=== PATIENT | female | born 1975 | race African-American/Black ===

== ENCOUNTER 2025-05-23 14:34 | Outpatient (REF) | payer OTHER, SELFPAY ==
--- OUTSIDE RECORDS SUMMARY | 2025-05-21 09:30 | XMS_ITS | Encounter Summary ---
Author Organization [facility] Address [address] [place] [address] Care Team Providers Care Belt Operator Name Role Phone Brittani Fontenot MD Primary Care Provider [phone] Reason for Referral * Imaging (Routine) - Pending Review Specialty Diagnoses / Procedures Referred By Contac t Referred To Contact Radiology Diagnoses Abdominal pain, unspecified abdominal location Procedures CT Abdomen Pelvis wo Contrast Declan San NP [address] [place] [address] Phone: tel: fax: [address] [phone] Phone: tel: Referral ID Status Reason Start Date Expiration Date V isits Requested Visits Authorized [id number] Pending Review 05/21/2025 05/21/2026 1 1 Reason for Visit * Reason Comments Medication Visit Encounter Details Date Type Department Care Team ([facility] st Contact Info) Description 05/21/2025 9:30 AM EST Office Visit Internal Medicine - [address] [phone] Declan San NP [address] [place] [id number] Hyperlipidemia, unspecified hyperlipidemia type (Primary Dx); Abdominal pain, unspecified abdominal location Social History Tobacco Use Types Packs/Day Years Used Date Smoking Tobacco: Every Day Cigarettes Smokeless Tobacco: Never Tobacco Cessation:Ready to Q uit: Not Asked; Counseling Given: Not Answered Alcohol Use Standard Drinks/Week Comments Yes 0 (1 standard drink = 0.6 oz pur e alcohol) Comments No Sex and Gender Information Value Date Recorded Sex Assigned at Female 05/12/2024 3:01 PM EST Legal Sex Female 2:20 PM EST Gender Identity Female 05/12/2024 3:01 PM EST Sexual Orientation Straight 05/12/2024 3: 01 PM EST documented as of this encounter Last Filed Vital Signs Vital Sign Reading Time Taken Comments Blood Pressure 114/78 05/21/2025 9:38 AM EST Pulse 102 05/21/2025 9:38 AM EST Temperature - - Respiratory Rate - - Oxygen Saturation - - Inhaled Oxygen Concentration - - Weight 78.8 kg (173 lb 11.2 oz) 05/21/2025 9:38 AM EST Height - - Body Mass Index 27.21 04/11/2025 10:06 AM EDT documented in this encounter Ordered Prescriptions Prescription Sig Dispense Quantity Refills Last Filled Start Date End Date ezetimibe (ZETIA) 10 mg tabletIndications:Hy perlipidemia, unspecified hyperlipidemia type Take 1 tablet (10 mg total) by mouth 1 (one) time each day. 90 each 05/21/2025 documented in this encounter Progress Notes * Declan San NP - 05/21/2025 9:30 AM EST CHIEF COMPLAINT: Medication Visit had concerns including Medication Visit. IDENTIFIER: Lexi Mccormack is a 50 y.o. old female HPI: Lexi Mccormack is a 50 y.o. old female presents to the office for evaluation of Medication Visit had concerns including Medication Visit. Stopped lovastatin due to side effect of muscle spasm throughout her body which resolved after she stopped medication, same symptoms had been previously on atorvastatin Reports abdominal pain located on different spots on her abdomen started about a year ago, mostly located on the left lower part and right upper, coughing make it worse, has history of heartburn and takes omeprazole, she feels this is not regular heartburn, denies regurgitation nausea vomiting, denies any other GI symptoms. Denies any urinary or genital symptoms Has history of partial hysterectomy 2 years ago Reports panic attack and would like to have prescription for lorazepam ROS: See HPI PAST MEDICAL HISTORY: Patient Active Problem List Diagnosis Date Noted Mild persistent asthma 10/27/2021 Seasonal allergies 10/27/2021 Nephrolithiasis 11/27/2020 Essential hypertension 05/04/2017 Anxiety with depression 03/29/2017 PTSD (post-traumatic stress disorder) 02/09/2016 Gastroesophageal reflux disease without esophagitis 07/22/2015 Smoking 11/11/2013 Overweight (BMI 25.0-29.9) 01/24/2011 Radiculitis, cervical 02/03/2010 Acne 12/30/2009 ACTIVE MEDICATIONS: Medications Taking[1] ALLERGIES: @ALL@ PHYSICAL EXAM: Visit Vitals BP 114/78 Pulse 102 Wt 78.8 kg (173 lb 11.2 oz) BMI 27.21 kg/m?? OB Status Hysterectomy Smoking Status Every Day BSA 1.9 m?? APPEARANCE: Alert and in no acute distress HEART: RRR with normal S1 and S2, no murmurs, no gallops, no JVD appreciated LUNG: clear to auscultation EXTREMITIES: Extremities warm and well perfused without clubbing, cyanosis, or edema LABS: @LASTDATALABS@ IMPRESSION: 1. Hyperlipidemia, unspecified hyperlipidemia type 2. Abdominal pain, unspecified abdominal location PLAN: Hyperlipidemia. Intolerant to statin, try Zetia, check lipid profile, liver enzyme Hypertension. Blood pressure is within normal limit, continue current regimen, check BMP. Abdominal pain. History of partial hysterectomy due to fibroid, given duration of symptoms about a year, order abdominal and pelvis CAT scan. Anxiety and panic attack, reports continuous and daily anxiety, reviewed several options which she is not interested, she would like to have a prescription for lorazepam, advised patient to see a psychiatrist for appropriate management, informed her that starting controlled substance medication needs PCP approval and related documentation. Has already scheduled follow-up appointment Orders Placed This Encounter Procedures CT Abdomen Pelvis wo Contrast ADDITIONAL ORDERS: CT ABDOMEN PELVIS WO CONTRAST Today's documentation was made using voice recognition software.This note may contain grammatical errors secondary to this software. Declan San NP on 05/21/2025 at 10:06 AM EST [1] Outpatient Medications Marked as Taking for the 05/21/25 encounter (Office Visit) with Declan San NP Medication Sig Dispense Refill albuterol HFA (PROAIR HFA ; PROVENTIL HFA ; VENTOLIN HFA) 90 mcg/actuation inhaler Inhale 2 puffs by mouth every 6 (six) hours if needed for wheezing. 6.7 g 1 aspirin 81 mg chewable tablet Chew 1 tablet (81 mg total) 1 (one) time each day. budesonide (PULMICORT) 90 mcg/actuation inhaler Inhale 1 puff by mouth 2 (two) times a day. Rinse mouth with water after use to reduce aftertaste and incidence of candidiasis. Do not swallow. 3 each 1 cetirizine (ZyrTEC) 10 mg tablet Take 1 tablet (10 mg total) by mouth 1 (one) time each day. 90 each 1 EPINEPHrine (EpiPen 2-Casey) 0.3 mg/0.3 mL injection INJECT CONTENTS OF 1 PEN NEEDED FOR ALLERGIC REACTION 1 each 0 fluticasone propionate (FLONASE) 50 mcg/actuation nasal spray Administer 2 sprays into each nostril1 (one) time each day. Shake gently. Before first use, prime pump. After use, clean tip and replacecap. 16 g 2 hydroCHLOROthiazide (HYDRODIURIL) 25 mg tablet Take 1 tablet (25 mg total) by mouth 1 (one) time each day. 90 each 1 inhaler, assist devices (AEROCHAMBER PLUS FLOW-VU MISC) USE WITH THE FLOVENT INHALER DIRECTED Lactobacillus acidophilus (PROBIOTIC ACIDOPHILUS ORAL) Take by mouth 1 (one) time each day. losartan (COZAAR) 50 mg tablet Take 1 tablet (50 mg total) by mouth 1 (one) time each day. 90 tablet 1 NIFEdipine (ADALAT CC) 30 mg 24 hr tablet Take 1 tablet (30 mg total) by mouth 1 (one) time each day. 90 tablet 0 omeprazole (PriLOSEC) [address] capsule Take 1 capsule (40 mg total) by mouth 1 (one) time each day.90 capsule 1 [DISCONTINUED] lovastatin (MEVACOR) 20 mg tablet Take 1 tablet (20 mg total) by mouth at bedtime. 30 each 5 documented in this encounter Plan of Treatment Upcoming Encounters Date Type Department Care Team (Late st Contact Info) Description 07/25/2025 10:00 AM EST Office Visit Obstetrics and Gynecology - [address] [phone] Mariluz Acevedo CNM [address] [place] [phone] Scheduled Orders Name Type Priority Associated Diagnoses Orde r Schedule CT Abdomen Pelvis wo Contrast Imaging Routine Abdominal pain, unspecified abdominal location Expected: 05/21/2025, Expires: 05/21/2026 documented as of this encounter Visit Diagnoses Diagnosis Hyperlipidemia, unspecified hyperlipidemia type- Primary Abdominal pain, unspecified abdominal location documented in this encounter Discontinued Medications Medication Sig Discontinue Reason Start Date End Da te lovastatin (MEVACOR) 20 mg tablet Take 1 tablet (20 mg total) by mouth at bedtime. Side effects 02/18/2025 05/21/2025 documented as of this encounter Care Teams Belt Operator Relationship Specialty Start Date End Date Brittani Fontenot MD [address] [place] [address] PCP - General Internal Medicine 05/21/25 documented as of this encounter
--- OUTSIDE RECORDS SUMMARY | 2025-05-21 10:20 | XMS_ITS | Encounter Summary ---
Author Organization [facility] Address [address] [place] [address] Care Team Providers Care Hydro Plant Technician Name Role Phone Brittani Fontenot MD Primary Care Provider [phone] Encounter Details Date Type Department Care Team (Late st Contact Info) Description 05/21/2025 10:20 AM EST Lab Draw Station - [place] [address] [place] [address] Numbness and tingling; Menopausal hot flushes; Adult general medical exam; Essential hypertension Social History Tobacco Use Types Packs/Day Years Used Date Smoking Tobacco: Every Day Cigarettes Smokeless Tobacco: Never Alcohol Use Standard Drinks/Week Comments Yes 0 (1 standard drink = 0.6 oz pur e alcohol) Comments No Sex and Gender Information Value Date Recorded Sex Assigned at Female 05/12/2024 3:01 PM EST Legal Sex Female 2:20 PM EST Gender Identity Female 05/12/2024 3:01 PM EST Sexual Orientation Straight 05/12/2024 3: 01 PM EST documented as of this encounter Functional Status * Calculated C-SSRS Risk Score (Lifetime/Recent) Answer Date of Assessment Author No Risk Indicated 05/22/2025 8:32 AM Cori Massey RN * [place] Suicide Severity Rating Scale (Screener/Recent Self-Report) Question Answer Date of Assessment Author 1. Wish to be (Past 1 Month) No 025 8:32 AM Cori Massey RN 2. Non-Specific Active Suici leslie Thoughts (Past 1 Month) No 05/22/2025 8:32 AM EST Santos, Wander a, RN 6. Suicidal Behavior (Lifetime) No 8:32 AM EST Cori Santos RN documented as of this encounter Plan of Treatment Upcoming Encounters Date Type Department Care Team (Late st Contact Info) Description 07/25/2025 10:00 AM EST Office Visit Obstetrics and [facility]necology - [address] [place] [address] Mariluz Acevedo, [address] [phone] documented as of this encounter Procedures Procedure Name Priority Date/Time Associated Diagnosis Comments THYROID STIMULATING HORMONE WITH REFLEX TO FREE T4 AND FREE T3 Routine 05/21/2025 10:26 AM EST Numbness and tingling Menopausal hot flushes LIPID PANEL WITH REFLEX TO DIRECT LDL Routine 05/21/2025 10:26 AM EST Adult general medical exam COMPREHENSIVE METABOLIC PANEL Routine 05/21/2025 10:26 AM EST Adult general medical exam Essential hypertension documented in this encounter Results * Comprehensive metabolic panel (05/21/2025 10:26 AM EST) Sodium 138 133 - 145 mmol/L LAB CHEMISTRY METHOD 05/21/2025 1:23 PM [facility] Potassium 4.2 3.5 - 5.5 mmol/L LAB CHEMISTRY METHOD 05/21/2025 1:23 PM [facility] Chloride 104 96 - 110 mmol/L LAB CHEMISTRY METHOD 05/21/2025 1:23 PM [facility] CO2 26 21 - 32 mmol/L LAB CHEMISTRY METHOD 05/21/2025 1:23 PM [facility] Anion Gap 8 3 - 11 LAB CHEMISTRY METHOD 05/21/2025 1:23 PM [facility] Glucose 90 70 - 100 mg/dL LAB CHEMISTRY METHOD 05/21/2025 1:23 PM [facility] BUN 21 5 - 25 mg/dL LAB CHEMISTRY METHOD 05/21/2025 1:23 PM [facility] Creatinine 0.88 0.50 - 1.10 mg/dL LAB CHEMISTRY METHOD 05/21/2025 1:23 PM [facility] eGFR 79 >=60 mL/min/1. 73m2 LAB CHEMISTRY METHOD 05/21/2025 1:23 PM [facility] Comment:Calculation based on the Chronic Kidney Disease Epidemiology Collaboration (CKD-EPI) equation refit without adjustment for race. BUN/Creatinine Ratio 23.9 LAB CHEMISTRY METHOD 05/21/2025 1:23 PM [facility] Calcium 9.7 8.5 - 10.5 mg/dL LAB CHEMISTRY METHOD 05/21/2025 1:23 PM [facility] AST (SGOT) 25 10 - 42 unit/L LAB CHEMISTRY METHOD 05/21/2025 1:23 PM [facility] ALT (SGPT) 29 10 - 60 unit/L LAB CHEMISTRY METHOD 05/21/2025 1:23 PM [facility] Alkaline Phosphatase 56 42 - 121 unit/L LAB CHEMISTRY METHOD 05/21/2025 1:23 PM [facility] Total Protein 7.7 6.0 - 8.0 g/dL LAB CHEMISTRY METHOD 05/21/2025 1:23 PM [facility] Albumin 4.4 3.2 - 5.0 g/dL LAB CHEMISTRY METHOD 05/21/2025 1:23 PM [facility] Total Bilirubin 0.4 0.0 - 1.4 mg/dL LAB CHEMISTRY METHOD 05/21/2025 1:23 PM [facility] Blood Venous blood specimen / Unknown Venipuncture / Unknown 05/21/2025 10:26 AM EST 05/21/2025 10:26 AM EST Declan San NP LAB BLOOD ORDERABLES Final Res ult Performing Organization Address [facility]/ZIP Co de Phone Number [facility] [address] [place] [address], [place] [phone] * (ABNORMAL) Lipid panel with reflex to direct LDL (05/21/2025 10:26 AM EST) Cholesterol 283(H) 0 - 200 mg/dL LAB CHEMISTRY METHOD 05/21/2025 1:27 PM EST [facility] Triglycerides 127 0 - 150 mg/dL LAB CHEMISTRY METHOD 05/21/2025 1:27 PM EST [facility] HDL 99 >=40 mg/dL LAB CHEMISTRY METHOD 05/21/2025 1:27 PM [facility] LDL Calculated 159(H) 0 - 100 mg/dL LAB CHEMISTRY METHOD 05/21/2025 1:27 PM [facility] Comment:Estimated LDL Calcul ated using equation: Total cholesterol - HDL cholesterol - (Triglycerides/5) VLDL Cholesterol Timothy 25.4 mg/dL LAB CHEMISTRY METHOD 05/21/2025 1:27 PM EST [facility] Non HDL Chol. (LDL+VLDL) 184(H) <145 mg/dL LAB CHEMISTRY METHOD 05/21/2025 1:27 PM [facility] Chol/HDL Ratio 2.9 0.0 - 4.4 LAB CHEMISTRY METHOD 05/21/2025 1:27 PM [facility] Blood Venous blood specimen / Unknown Venipuncture / Unknown 05/21/2025 10:26 AM EST 05/21/2025 10:26 AM EST Declan San NP LAB BLOOD ORDERABLES Final Res ult [facility] [address] [place] [address], [place] [phone] * Thyroid stimulating hormone with reflex to free t4 and free t3 (05/21/2025 10:26 AM EST) TSH 0.99 0.40 - 4.00 mcIU/mL LAB CHEMISTRY METHOD 05/21/2025 2:10 PM EST [facility] Blood Venous blood specimen / Unknown Venipuncture / Unknown 05/21/2025 10:26 AM EST 05/21/2025 10:26 AM EST us Declan San [facility] LAB BLOOD ORDERABLES Final Res ult [facility] [address] [place] [address], documented in this encounter Visit Diagnoses Diagnosis Numbness and tingling Disturbance of skin sensation Menopausal hot flushes Symptomatic menopausal or female climacteric states Adult general medical exam Unspecified general medical examination Essential hypertension Unspecified essential hypertension documented in this encounter Care Teams Hydro Plant Technician Relationship Specialty Start Date End Date Brittani Fontenot MD [facility] [place] [address] PCP - General Internal Medicine 05/21/25 documented as of this encounter
--- OUTSIDE RECORDS SUMMARY | 2025-05-22 08:40 | XMS_ITS | Encounter Summary ---
Author Organization [facility] Address [address] [place] [address] Care Team Providers Care Healthcare Architect Name Role Phone Brittani Fontenot MD Primary Care Provider [phone] Reason for Referral * Consultation (Routine) - Pending Review Specialty Diagnoses / Procedures Referred By Whitney t Referred To Contact Urology Richard Fraser PA [address] [place] [address] Phone: tel: fax: [facility] [address] [place] [address] Phone: tel: fax: Referral ID Status Reason Start Date Expiration Date Visits Requested Visits Authorized [id number] Pending Review Specialty Services Required 05/22/2026 1 1 Reason for Visit * Reason Comments Abdominal Pain X1 month, saw pcp ye ster who ordered CT but waiting on approval Encounter Details Date Type Department Care Team (Late st Contact Info) Description 05/22/2025 8:40 AM EST - 05/22/2025 1:37 PM EST Emergency [facility] Emergency [address] [place] [id number] Kidney stones (Primary Dx); Back strain, initial encounter Discharge Disposition: Home or Self Care Social History Tobacco Use Types Packs/Day Years [...] Sign Reading Time Taken Comments Blood Pressure 125/88 05/22/2025 10:26 AM EST Pulse 82 05/22/2025 10:26 AM EST Temperature 36.7 C (98.1 F) 05/22/2025 10:26 AM EST Respiratory Rate 16 05/22/2025 10:26 AM EST Oxygen Saturation 98% 05/22/2025 10:26 AM EST Inhaled Oxygen Concentration - - Weight 77.1 kg (170 lb) 05/22/2025 8:36 AM EST Height 170.2 cm (5' 7 ) 05/22/2025 8:36 AM EST Body Mass Index 26.63 05/22/2025 8:36 AM EST documented in this encounter Functional Status * Are you deaf or do you have serious difficulty hearing? Answer Date of Assessment Author No 05/22/2025 8:46 AM Johnson RN * Are you blind or do you have serious difficulty seeing, even when wearing glasses? Answer Date of Assessment Author No 05/22/2025 8:46 AM Johnson RN * Do you have serious difficulty walking or climbing stairs? Answer Date of Assessment Author No 05/22/2025 8:46 AM Johnson RN * Do you have serious difficulty dressing or bathing? Answer Date of Assessment Author No 05/22/2025 8:46 AM Johnson RN * Because of a physical, mental, or emotional condition, do you have serious difficulty doing errandsalone such as visiting the doctor? Answer Date of Assessment Author No 05/22/2025 8:46 AM Johnson RN * Calculated C-SSRS Risk Score (Lifetime/Recent) Answer Date of Assessment Author No Risk Indicated 05/22/2025 8:32 AM EST Cori Santos RN * [place] Suicide Severity Rating Scale (Screener/Recent Self-Report) Question Answer Date of Assessment Author 1. Wish to be (Past 1 Month) No 025 8:32 AM Cori Massey RN 2. Non-Specific Active Suici leslie Thoughts (Past 1 Month) No 05/22/2025 8:32 AM Wander Massey RN 6. Suicidal Behavior (Lifetime) No 8:32 AM Cori Massey RN documented as of this encounter Mental Status * Because of a physical, mental, or emotional condition, do you have serious difficulty concentrating, remembering, or making decisions? (5 years old or older) Answer Entry Date Author No 05/22/2025 8:46 AM Johnson RN documented in this encounter Discharge Instructions * Discharge Instructions* PAULINE Harris - 05/22/2025 12:56 PM EST You were evaluated for abdominal pain and spasms. You do not have a urinary tract infection. Your symptoms are likely caused by small kidney stones and muscle spasms. You were given medications to help with pain and to relax the muscles. You will also follow up with specialists to help manage your condition. Diagnosis: Kidney stones, non-obstructing Back muscle strain Treatment: Take tamsulosin as prescribed to help pass kidney stones Take the muscle relaxer as directed to reduce spasms Use acetaminophen for pain (do not take ibuprofen if you are on blood thinners) Drink plenty of water to help flush your kidneys Rest and avoid activities that make the pain worse Return to ER if: You develop fever, chills, or vomiting Your pain becomes severe or constant You notice blood in your urine or stool You feel weak, dizzy, or confused Follow up with your primary care provider in 3-5 days or sooner to review your CT scan results. Youwill also be referred to a kidney specialist (urology/renal) to help manage your kidney stones and symptoms. documented in this encounter Medications at Time of Discharge aspirin 81 mg chewable tablet Chew 1 tablet (81 mg total) 1 (one) time each day. cetirizine (ZyrTEC) 10 mg tabletIndications: Mild intermittent asthma without complication Take 1 tablet (10 mg total) by mouth 1 (one) time each day. 90 each 1 03/24/2025 6 EPINEPHrine (EpiPen 2-Casey) 0.3 mg/0.3 mL injection INJECT CONTENTS OF 1 PEN NEEDED FOR ALLERGIC REACTION 1 each 06/26/2024 hydroCHLOROthiazid e (HYDRODIURIL) 25 mg tabletIndications: Essential (primary) hypertension Take 1 tablet (25 mg total) by mouth 1 (one) time each day. 90 each 1 03/24/2025 6 inhaler, assist devices (AEROCHAMBER PLUS FLOW-VU [facility]) USE WITH THE FLOVENT INHALER DIRECTED 01/14/2022 Lactobacillus acidophilus (PROBIOTIC ACIDOPHILUS ORAL) Take by mouth 1 (one) time each day. losartan (COZAAR) 50 mg tablet Take 1 tablet (50 mg total) by mouth 1 (one) time each day. 90 tablet 1 02/18/2025 NIFEdipine (ADALAT CC) 30 mg 24 hr tabletIndications: Essential (primary) hypertension Take 1 tablet (30 mg total) by mouth 1 (one) time each day. 90 tablet 03/04/2025 omeprazole (PriLOSEC) [address] capsule Take 1 capsule (40 mg total) by mouth 1 (one) time each day. 90 capsule 1 05/20/2025 acetaminophen (TYLENOL) 500 mg tablet Take 2 tablets (1,000 mg total) by mouth every 6 (six) hours if needed for mild pain for up to 10 days. 30 tablet 05/22/2025 5 methocarbamoL (ROBAXIN) 500 mg tablet Take 1 tablet (500 mg total) by mouth 3 (three) times a day for 7 days. 20 tablet 05/22/2025 5 oxyCODONE-acetamin ophen (PERCOCET) 10-325 mg per tablet Take 1 tablet by mouth every 6 (six) hours if needed for severe pain for up to 3 days. Max Daily Amount: 4 tablets 12 tablet 05/22/2025 5 tamsulosin (FLOMAX) 0.4 mg 24 hr capsule Take 1 capsule (0.4 mg total) by mouth 1 (one) time each day for 7 days. Capsules should be taken 30 minutes following the same meal each day. 7 capsule 05/22/2025 5 documented as of this encounter Ordered Prescriptions Prescription Sig Dispense Quantity Refills Last Filled Start Date End Date oxyCODONE-acetamin ophen (PERCOCET) 10-325 mg per tablet Take 1 tablet by mouth every 6 (six) hours if needed for severe pain for up to 3 days. Max Daily Amount: 4 tablets 12 tablet 05/22/2025 5 acetaminophen (TYLENOL) 500 mg tablet Take 2 tablets (1,000 mg total) by mouth every 6 (six) hours if needed for mild pain for up to 10 days. 30 tablet 05/22/2025 5 methocarbamoL (ROBAXIN) 500 mg tablet Take 1 tablet (500 mg total) by mouth 3 (three) times a day for 7 days. 20 tablet 05/22/2025 5 tamsulosin (FLOMAX) 0.4 mg 24 hr capsule Take 1 capsule (0.4 mg total) by mouth 1 (one) time each day for 7 days. Capsules should be taken 30 minutes following the same meal each day. 7 capsule 05/22/2025 5 documented in this encounter Discharge Disposition Disposition Code Departure Means Destination Comment s Home or Self Care documented in this encounter Progress Notes * Cori Santos RN - 05/22/2025 8:31 AM EST Pt c/o lower right abd pain x1 month. Saw pcp yesterday who ordered an outpatient ct but she is waiting on insurance approval. Also c/o weakness today documented in this encounter Plan of Treatment Upcoming Encounters Date Type Department Care Team (Late st Contact Info) Description 07/25/2025 10:00 AM EST Office Visit [facility] [address] [place] [address] [facility] [place] [address] Scheduled Referrals Name Type Priority Associated Diagnoses Order Schedule Ambulatory referral to Urology Outpatient Referral Routine 1 Occurrence s starting 05/22/2025 until 05/22/2026 documented as of this encounter Procedures Procedure Name Priority Date/Time Associated Diagnosis Comments URINALYSIS WITH REFLEX MICROSCOPIC AND CULTURE STAT 05/22/2025 12:00 PM EST [place] URINE CULTURE TUBE STAT 05/22/2025 12:00 PM EST URINALYSIS WITH REFLEX MICROSCOPIC AND CULTURE STAT 05/22/2025 12:[address] ABDOMEN PELVIS WO CONTRAST STAT 05/22/2025 11:12 AM EST CBC WITH AUTO DIFFERENTIAL STAT 05/22/2025 10:14 AM EST CBC AND DIFFERENTIAL STAT 05/22/2025 10:14 AM EST documented in this encounter Results * [place] urine culture tube (05/22/2025 12:00 PM EST) Pathologist [facility] Extra Tube Hold for add-ons. 05/22/2025 2:[address] [facility] Comment:Auto resulted. Urine Urine specimen obtained by clean catch procedure / Unknown Non-blood Collection / Unknown 05/22/2025 12:00 PM EST 05/22/2025 12:10 PM EST Richard CARPENTER LAB URINE ORDERABLES Final Result [facility] [address] [place] [address], [place] [phone] * Urinalysis with reflex microscopic and culture (05/22/2025 12:00 PM EST) Specific [place] Urine 1.009 1.003 - 1.030 LAB URINALYSIS - AUTOMATED METHOD 05/22/2025 12:[address] [facility] pH, Urine 6.0 5.0 - 8.0 pH LAB URINALYSIS - AUTOMATED METHOD 05/22/2025 12:[address] [facility] Leukocytes, Urine Negative Negative LAB URINALYSIS - AUTOMATED METHOD 05/22/2025 12:19 PM [facility] Nitrite, Urine Negative Negative LAB URINALYSIS - AUTOMATED METHOD 05/22/2025 12:19 PM [facility] Protein, Urine Negative <=Trace mg/dL LAB URINALYSIS - AUTOMATED METHOD 05/22/2025 12:19 PM [facility] Glucose, Urine Negative Negative mg/dL LAB URINALYSIS - AUTOMATED METHOD 05/22/2025 12:19 PM [facility] Ketones, Urine Negative Negative mg/dL LAB URINALYSIS - AUTOMATED METHOD 05/22/2025 12:19 PM [facility] Urobilinogen, Urine 0.2 0.2 - 1.0 mg/dL LAB URINALYSIS - AUTOMATED METHOD 05/22/2025 12:19 PM [facility] Bilirubin, Urine Negative Negative LAB URINALYSIS - AUTOMATED METHOD 05/22/2025 12:19 PM [facility] Blood, Urine Negative Negative LAB URINALYSIS - AUTOMATED METHOD 05/22/2025 12:19 PM [facility] Urine Urine specimen obtained by clean catch procedure / Unknown Non-blood Collection / Unknown 05/22/2025 12:00 PM EST 05/22/2025 12:10 PM EST Richard CARPENTER LAB URINE ORDERABLES Final Result [facility] [address] [place] [address], [place] [phone] * CT Abdomen Pelvis wo Contrast (05/22/2025 11:12 AM EST) Anatomical Region Laterality Modality Body Computed Tomogra phy 05/22/2025 11:1 9 AM EST Impressions 05/22/2025 11:38 AM EST No acute findings in the abdomen and pelvis. 2 punctate nonobstructing right renal calculi. -------- FINAL REPORT -------- Dictated By: Jose Coleman Dictated Date: 05/22/2025 11:19 ET Assigned Physician: Jose Coleman Reviewed and Electronically Signed By: Jose Coleman Signed Date: 05/22/2025 11:38 ET Workstation ID: [id number] Transcribed By: Self Edit Transcribed Date: 05/22/2025 11:32 ET Narrative 05/22/2025 11:38 AM EST PROCEDURE: CT of the abdomen and pelvis without intravenous contrast. HISTORY: Abdominal pain, acute, no prior medical history. COMPARISON: 07/13/2022. TECHNIQUE: Noncontrast CT of the abdomen and pelvis with coronal and sagittal reformats. Dose length product: 802 mGy-cm. FINDINGS: Lung bases: Normal. Cardiac: Normal. Liver: Limited evaluation without intravenous contrast. No visible abnormality. Biliary: Normal gallbladder and biliary tree. Pancreas: Limited evaluation without intravenous contrast. No visible abnormality. Spleen: Limited evaluation without intravenous contrast. No visible abnormality. Adrenal glands: Normal. Kidneys: Limited evaluation without intravenous contrast. 2 punctate nonobstructing right renal calculi. Normal appearance of the ureters. Retroperitoneum: No mass or adenopathy. Abdominal vasculature: Mild multifocal atherosclerotic calcification. Bowel/mesentery: No obstruction or adenopathy. No mass or ascites. Abdominal wall: Normal. Pelvic nodes: No adenopathy. Pelvic organs: Hysterectomy. Bones: Degenerative changes of the spine, hips, SI joints, and pubic symphysis. Procedure Note Jose Coleman MD - 05/22/2025 PROCEDURE: CT of the abdomen and pelvis without intravenous contrast. HISTORY: Abdominal pain, acute, no prior medical history. COMPARISON: 07/13/2022. TECHNIQUE: Noncontrast CT of the abdomen and pelvis with coronal andsagittal reformats. Dose length product: 802 mGy-cm. FINDINGS: Lung bases: Normal. Cardiac: Normal. Liver: Limited evaluation without intravenous contrast. No visibleabnormality. Biliary: Normal gallbladder and biliary tree. Pancreas: Limited evaluation without intravenous contrast. No visibleabnormality. Spleen: Limited evaluation without intravenous contrast. No visibleabnormality. Adrenal glands: Normal. Kidneys: Limited evaluation without intravenous contrast. 2 punctatenonobstructing right renal calculi. Normal appearance of the ureters. Retroperitoneum: No mass or adenopathy. Abdominal vasculature: Mild multifocal atherosclerotic calcification. Bowel/mesentery: No obstruction or adenopathy. No mass or ascites. Abdominal wall: Normal. Pelvic nodes: No adenopathy. Pelvic organs: Hysterectomy. Bones: Degenerative changes of the spine, hips, SI joints, and pubicsymphysis. IMPRESSION: No acute findings in the abdomen and pelvis. 2 punctate nonobstructing right renal calculi. -------- FINAL REPORT -------- Dictated By: Jose Coleman Dictated Date: 05/22/2025 11:19 ET Assigned Physician: Jose Coleman Reviewed and Electronically Signed By: Jose Coleman Signed Date: 05/22/2025 11:38 ET Workstation ID: [id number] Transcribed By: Self Edit Transcribed Date: 05/22/2025 11:32 ET Richard CARPENTER IM CT PROCEDURES Final Res ult * (ABNORMAL) CBC auto differential (05/22/2025 10:14 AM EST) WBC 6.1 4.8 - 10.8 K/mcL LAB HEMETOLOGY METHOD 05/22/2025 10:56 AM [facility] RBC 3.90 3.80 - 4.80 M/mcL LAB HEMETOLOGY METHOD 05/22/2025 10:56 AM [facility] Hemoglobin 11.6 11.5 - 16.0 g/dL LAB HEMETOLOGY METHOD 05/22/2025 10:56 AM [facility] Hematocrit 34.4(L) 35.0 - 47.0 % LAB HEMETOLOGY METHOD 05/22/2025 10:56 AM [facility] MCV 87.8 79.0 - 98.0 FL LAB HEMETOLOGY METHOD 05/22/2025 10:56 AM [facility] MCH 29.6 27.0 - 32.0 pcg LAB HEMETOLOGY METHOD 05/22/2025 10:56 AM [facility] MCHC 33.7 32.0 - 37.0 g/dL LAB HEMETOLOGY METHOD 05/22/2025 10:56 AM [facility] RDW 12.3 11.0 - 15.0 % LAB HEMETOLOGY METHOD 05/22/2025 10:56 AM [facility] Platelets 204 130 - 400 K/mcL LAB HEMETOLOGY METHOD 05/22/2025 10:56 AM [facility] MPV 11.2(H) 7.0 - 11.0 FL LAB HEMETOLOGY METHOD 05/22/2025 10:56 AM [facility] NRBC 0.0 <1.0 % LAB HEMETOLOGY METHOD 05/22/2025 10:56 AM [facility] NRBC Absolute 0.00 <0.10 K/mcL LAB HEMETOLOGY METHOD 05/22/2025 10:56 AM [facility] Neutrophils Relative 49.9 % LAB HEMETOLOGY METHOD 05/22/2025 10:56 AM [facility] Lymphocytes Relative 39.9 % LAB HEMETOLOGY METHOD 05/22/2025 10:56 AM [facility] Monocytes Relative 8.7 % LAB HEMETOLOGY METHOD 05/22/2025 10:56 AM [facility] Eosinophils Relative 0.7 % LAB HEMETOLOGY METHOD 05/22/2025 10:56 AM [facility] Basophils Relative 0.5 % LAB HEMETOLOGY METHOD 05/22/2025 10:56 AM [facility] Immature Granulocytes Relative 0.3 % LAB HEMETOLOGY METHOD 05/22/2025 10:56 AM [facility] Neutrophils Absolute 3.02 1.50 - 7.00 K/mcL LAB HEMETOLOGY METHOD 05/22/2025 10:[address] [facility] Lymphocytes Absolute 2.42 1.00 - 5.00 K/[facility] HEMETOLOGY METHOD 05/22/2025 10:[address] [facility] Monocytes Absolute 0.53 0.20 - 1.00 K/[facility] HEMETOLOGY METHOD 05/22/2025 10:[address] [facility] Eosinophils Absolute 0.04 0.00 - 0.50 K/[facility] HEMETOLOGY METHOD 05/22/2025 10:[address] [facility] Basophils Absolute 0.03 0.00 - 0.20 K/[facility] HEMETOLOGY METHOD 05/22/2025 10:56 AM [facility] Immature Granulocytes Absolute 0.02 0.00 - 0.03 K/[facility] HEMETOLOGY METHOD 05/22/2025 10:56 AM [facility] Blood Venous blood specimen / Unknown Venipuncture / Unknown 05/22/2025 10:14 AM EST 05/22/2025 10:52 AM EST us Casey Min MD LAB BLOOD ORDERABLES Final Result [facility] [address] [place] [address], documented in this encounter Visit Diagnoses Diagnosis Kidney stones- Primary Calculus of kidney Back strain, initial encounter documented in this encounter Care Teams Healthcare Architect Relationship Specialty Start Date End Date Brittani Fontenot MD [facility] [address] [place], [place] PCP - General Internal Medicine 05/21/25 documented as of this encounter
--- NOTE | 2025-05-23 | EMG_ITS ---
Chief complaint: She had an episode of neck pain, which has improved. But continues to have numbness on both hands. Reason for referral: Evaluate for Carpal Tunnel Syndrome Referred by: Brody CARPENTER Procedure done: Upper extremity NCS/EMG Precautions and/or limitations: None The limb temperature was monitored continuously and remained between 32-36 degrees C during the performance of the NCS. Ulnar motor NCS was performed with moderate elbow flexion between 70-90 degrees, with across-elbow distance of 10 cm. Nerve Conduction Studies Anti Sensory Summary Table ?Stim Site NR Onset (ms) Norm Onset (ms) Peak (ms) Norm Peak (ms) O-P Amp (?V) Norm O-P Amp Site1 Site2 Delta-0 (ms) Dist (cm) Mo (m/s) Norm Mo (m/s) Left Median Anti Sensory (2nd Digit) Wrist ? 4.7 5.5 <3.6 4.3 >10 Wrist 2nd Digit 4.7 14.0 30 Right Median Anti Sensory (2nd Digit) Wrist ? 4.4 5.6 <3.6 8.3 >10 Wrist 2nd Digit 4.4 14.0 32 Right Radial Anti Sensory (Thumb) Forearm ? 2.1 2.7 <3.1 17.4 Forearm Thumb 2.1 10.0 48 Left Ulnar Anti Sensory (5th Digit) Wrist ? 2.8 3.6 <3.7 17.5 >15.0 Wrist 5th Digit 2.8 14.0 50 Right Ulnar Anti Sensory (5th Digit) Wrist ? 3.2 4.1 <3.7 8.9 >15.0 Wrist 5th Digit 3.2 14.0 44 Motor Summary Table ?Stim Site NR Onset (ms) Norm Onset (ms) O-P Amp (mV) Norm O-P Amp iAmp (mV) Amp (1st) (%) Site1 Site2 Delta-0 (ms) Dist (cm) Mo (m/s) Norm Mo (m/s) Left Median Motor (Abd Poll Brev) Wrist ? 7.1 <3.9 7.4 >4.5 8.7 100.0 Elbow Wrist 4.5 20.0 44 >45 Elbow ? 11.6 7.0 8.3 94.6 Right Median Motor (Abd Poll Brev) Wrist ? 6.0 <3.9 10.3 >4.5 12.0 100.0 Elbow Wrist 4.2 20.0 48 >45 Elbow ? 10.2 10.7 12.8 103.9 Left Ulnar Motor (Abd Dig Minimi) Wrist ? 3.7 <3.0 7.7 >5 9.2 100.0 B Elbow Wrist 3.8 20.5 54 >45 B Elbow ? 7.5 6.8 8.1 88.3 A Elbow B Elbow 1.6 10.0 63 >45 A Elbow ? 9.1 6.8 8.1 88.3 Right Ulnar Motor (Abd Dig Minimi) Wrist ? 3.8 <3.0 9.1 >5 10.3 100.0 B Elbow Wrist 4.0 20.0 50 >45 B Elbow ? 7.8 7.7 8.8 84.6 A Elbow B Elbow 1.6 10.0 62 >45 A Elbow ? 9.4 7.2 8.4 79.1 Right Ulnar (FDI) Motor (FDI) Wrist ? 4.5 <3.0 9.8 >5 12.3 100.0 B Elbow Wrist 3.9 19.5 50 >45 B Elbow ? 8.4 5.4 6.6 55.1 A Elbow B Elbow 1.4 10.0 71 >45 A Elbow ? 9.8 6.1 7.3 62.2 EMG ?Side Muscle Nerve Root Ins Act Fibs Psw Amp Dur Poly Recrt Int Pat Comment Right 1stDorInt Ulnar C8-T1 Nml Nml Nml Nml Nml 0 Nml Complete Right FlexCarRad Median C6-7 Nml Nml Nml Nml Nml 0 Nml Complete Right Biceps Musculocut C5-6 Nml Nml Nml Nml Nml 0 Nml Complete Right Triceps Radial C6-7-8 Nml Nml Nml Nml Nml 0 Nml Complete Right Deltoid Axillary C5-6 Nml Nml Nml Nml Nml 0 Nml Complete Left 1stDorInt Ulnar C8-T1 Nml Nml Nml Nml Nml 0 Nml Complete Left FlexCarRad Median C6-7 Nml Nml Nml Nml Nml 0 Nml Complete Left Biceps Musculocut C5-6 Nml Nml Nml Nml Nml 0 Nml Complete Left Triceps Radial C6-7-8 Nml Nml Nml Nml Nml 0 Nml Complete Left Deltoid Axillary C5-6 Nml Nml Nml Nml Nml 0 Nml Complete Paraspinal EMG ?Side Muscle Nerve Root Ins Act Fibs Psw Comment Right Cervical Upper Rami Nml Nml Nml Right Cervical Mid Rami Nml Nml Nml Right Cervical Lower Rami Incr 1+ 1+ Left Cervical Upper Rami Nml Nml Nml Left Cervical Mid Rami Nml Nml Nml Left Cervical Lower Rami Nml Nml Nml FINDINGS: Right median motor nerves showed prolonged distal latency, normal amplitude and normal conduction velocity. Left median motor nerve showed prolonged distal latencies, normal amplitude and slow conduction velocity. Bilateral median sensory nerves showed prolonged peak latencies and small amplitude. Right ulnar motor nerve, recording either on ADM or FDI, showed prolonged distal latency, normal amplitude and normal conduction velocity. No conduction block across elbow. Evidence of possible right Elliott Brionna anastomosis was seen, which is a normal anatomic variant. Left ulnar motor nerve showed prolonged distal latency, normal amplitude and normal conduction velocity. No conduction block across elbow. Right ulnar sensory nerve showed small amplitude and prolonged peak latency. Left ulnar sensory nerve within normal. Right radial sensory nerve within normal. Concentric needle EMG was performed in selected muscles of the bilateral upper extremities and cervical paraspinals. Study revealed signs of electric abnormalities as shown in the table above. Right lower cervical paraspinals showed increased insertional activity, PSWs and fibrillations. IMPRESSION: 1. This is an abnormal study. 2. There is electrodiagnostic evidence for bilateral moderate-severe median neuropathy at the wrist, consistent with Carpal Tunnel Syndrome.. 3. There are electrodiagnostic findings suggestive for bilateral ulnar neuropathy, chronic, more evident on right side. 4. I can not completely rule out a lower cervical radiculopathy. CLINICAL COMMENT: Further clinical correlation recommended. Thank you for your kind referral. Nimisha Rock MD, KATIE Board Certified, [place] Board [employer] Physical [employer] and Rehabilitation (ABPMR) Board Certified, [place] Board of Electrodiagnostic Medicine (ABEM) CODIN [phone] x 2 extremities MTDD
--- OUTSIDE RECORDS SUMMARY | 2025-05-23 21:41 | XMS_ITS | Clinical Summary ---
Author Organization [address] [facility] Address [address] [place] [phone] Phone Care Team Providers Care Electrical Instrumentation Technician Name Role Phone Brittani Fontenot MD Primary Care Provider [phone] Allergies Active Allergy Reactions Criticality Noted Date Comments Atorvastatin Muscular Issues 02/18/2025 Crab 01/01/2025 Hydrocodone-Acetaminophen 01/01/2010 Iodinated Contrast Media 02/09/2016 Lobster 01/01/2025 Minocycline Hcl High 10/04/2006 Other Reaction(s): Rash/Dermatitis caused oral thrush Morphine Anaphylaxis High 07/13/2022 Other Headache 09/23/2021 Covid-19 (Subunit) Vaccine- Other Reaction(s): OTHER Nausea, fever , seizure (phizer) Medications Lactobacillus acidophilus (PROBIOTIC ACIDOPHILUS ORAL) Take by mouth 1 (one) time each day. Active inhaler, assist devices (AEROCHAMBER PLUS FLOW-VU [facility]) USE WITH THE FLOVENT INHALER DIRECTED 022 Active albuterol HFA (PROAIR HFA ; PROVENTIL HFA ; VENTOLIN HFA) 90 mcg/actuation inhalerIndication s:Mild intermittent asthma without complication Inhale 2 puffs by mouth every 6 (six) hours if needed for wheezing. 6.7 g 1 024 Active EPINEPHrine (EpiPen 2-Casey) 0.3 mg/0.3 mL injection INJECT CONTENTS OF 1 PEN NEEDED FOR ALLERGIC REACTION 1 each 024 Active fluticasone propionate (FLONASE) 50 mcg/actuation nasal sprayIndications: Nasal congestion Administer 2 sprays into each nostril 1 (one) time each day. Shake gently. Before first use, prime pump. After use, clean tip and replace cap. 16 g 2 Active budesonide (PULMICORT) 90 mcg/actuation inhaler Inhale 1 puff by mouth 2 (two) times a day. Rinse mouth with water after use to reduce aftertaste and incidence of candidiasis. Do not swallow. 3 each Active aspirin 81 mg chewable tablet Chew 1 tablet (81 mg total) 1 (one) time each day. Active losartan (COZAAR) 50 mg tablet Take 1 tablet (50 mg total) by mouth 1 (one) time each day. 90 tablet 1 Active NIFEdipine (ADALAT CC) 30 mg 24 hr tabletIndications :Essential (primary) hypertension Take 1 tablet (30 mg total) by mouth 1 (one) time each day. 90 tablet 025 Active hydroCHLOROthiazi de (HYDRODIURIL) 25 mg tabletIndications :Essential (primary) hypertension Take 1 tablet (25 mg total) by mouth 1 (one) time each day. 90 each 025 2025 Active cetirizine (ZyrTEC) 10 mg tabletIndications :Mild intermittent asthma without complication Take 1 tablet (10 mg total) by mouth 1 (one) time each day. 90 each 025 2025 Active omeprazole (PriLOSEC) [address] capsule Take 1 capsule (40 mg total) by mouth 1 (one) time each day. 90 capsule 1 Active tamsulosin (FLOMAX) 0.4 mg 24 hr capsule Take 1 capsule (0.4 mg total) by mouth 1 (one) time each day for 7 days. Capsules should be taken 30 minutes following the same meal each day. 7 capsule 025 2024 Active methocarbamoL (ROBAXIN) 500 mg tablet Take 1 tablet (500 mg total) by mouth 3 (three) times a day for 7 days. 20 tablet 2024 Active acetaminophen (TYLENOL) 500 mg tablet Take 2 tablets (1,000 mg total) by mouth every 6 (six) hours if needed for mild pain for up to 10 days. 30 tablet 025 2024 Active oxyCODONE-acetami nophen (PERCOCET) 10-325 mg per tablet Take 1 tablet by mouth every 6 (six) hours if needed for severe pain for up to 3 days. Max Daily Amount: 4 tablets 12 tablet 2024 Active lovastatin (MEVACOR) 20 mg tablet Take 1 tablet (20 mg total) by mouth at bedtime. 30 each 5 025 2024 Discontinued(S katrin effects) omeprazole (PriLOSEC) [address] capsule Take 1 capsule (40 mg total) by mouth 1 (one) time each day. 90 capsule 025 2024 Discontinued(R eorder) ezetimibe (ZETIA) 10 mg tabletIndications :Hyperlipidemia, unspecified hyperlipidemia type Take 1 tablet (10 mg total) by mouth 1 (one) time each day. 90 each 025 2024 Discontinued hydrOXYzine HCL (ATARAX) 25 mg tabletIndications :Anxiety Take 1 tablet (25 mg total) by mouth at bedtime as needed for anxiety. 90 each 025 2024 Discontinued Active Problems Problem Noted Date Diagnosed Date Mild persistent asthma 10/27/2021 Seasonal allergies 10/27/2021 Nephrolithiasis 11/27/2020 Overview (05/23/2024): PVU, stent/removal, lithotripsy Essential hypertension 05/04/2017 Anxiety with depression 03/29/2017 Overview (05/23/2024): Therapist Meme [phone] PTSD (post-traumatic stress disorder) 02/09/2016 Gastroesophageal reflux disease without esophagi tis 07/22/2015 Smoking 11/11/2013 Overweight (BMI 25.0-29.9) 01/24/2011 Radiculitis, cervical 02/03/2010 Acne 12/30/2009 Encounters Date Type Department Care Team Description 05/22/2025 8:40 AM EST - 05/22/2025 1:37 PM EST Emergency [facility] Emergency [address] [place] [address] Kidney stones (Primary Dx); Back strain, initial encounter Discharge Disposition: Home or Self Care 05/21/2025 10:20 AM EST Lab Draw Station [address] Numbness and tingling; Menopausal hot flushes; Adult general medical exam; Essential hypertension 05/21/2025 9:30 AM EST Office Visit Internal Medicine - [address] [phone] Declan San NP Hyperlipidemia, unspecified hyperlipidemia type (Primary Dx); Abdominal pain, unspecified abdominal location 05/21/2025 Results Follow-Up Internal Medicine - [address] [phone] Declan San NP 05/21/2025 Telephone Internal Medicine - [address] [phone] Brittani Fontenot MD 04/14/2025 Results Follow-Up Internal Medicine - [address] [phone] nSow Reis [place] 04/11/2025 9:53 AM EDT - 04/11/2025 11:59 PM EDT [facility] at [address] [phone] Encounter for screening mammogram for malignant neoplasm of breast Discharge Disposition: Home or Self Care 04/04/2025 12:00 PM EDT Office Visit Internal Medicine - [address] [phone] Declan San NP Adult general medical exam (Primary Dx); Overweight (BMI 25.0-29.9); Numbness and tingling; Essential hypertension; Menopausal hot flushes; Encounter for screening mammogram for malignant neoplasm of breast from Last 3 Months Immunizations Immunization Administration Dates Next Due Pfizer SARS-CoV-2 COVID-19, mRNA, LNP-S, preservative free 08/19/2020 Tdap Tetanus diptheria acell ular pertussis (Boostrix; Adacel) 7yo and older 12/30/2009 Surgical History Surgery Date Site/Laterality Comments KNEE ARTHROSCOPY PROCEDURE: [place] ARTHROSCOPY AID [place] SPINE&/FX KNEE W/O FIXJ OTHER SURGICAL HISTORY 11/20/2020 Right PROCEDURE: [place] URETERAL ENDOSCOPY VIA URETEROSTOMY; COMMENT: stone extraction/ stent exchange OTHER SURGICAL HISTORY 08/15/2022 PROCEDURE: LAPAROSCOPY, SURGICAL/HYSTERECTOMY; COMMENT: with bilateral salpingectomy HYSTERECTOMY Medical History Medical History Date Comments Historical Medical DX DX:Other a bnormal Pap smear and cervical HPV (human papapillomavirus); COMMENT: ? gonzalo 2-laser 1995 Esophageal reflux DX:Esophageal reflux Essential hypertension DX:Essent ial hypertension Nephrolithiasis 11/27/2020 DX:Nephrolithias is; COMMENT: PVU Cervical cancer ([facility] V24 , [facility] V28) 1991 DX:Cervical cancer ([facility]) Covid-19 07/14/2022 DX:COVID-19; COM MENT: 07/13/22 Family History Medical History Relation Name Comments Breast cancer Aunt MAT X2 Ovarian cancer Aunt maternal 50 No Known Problems Brother No Known Problems Father No Known Problems Maternal Grandfather Colon cancer Maternal Grandmother ? colon or ovarian No Known Problems Mother No Known Problems Other No Known Problems Paternal Grandfather No Known Problems Paternal Grandmother Other: ? cervical abnormality Sister Colon cancer Uncle paternal uncle Blindness Neg Hx Cataracts Neg Hx Glaucoma Neg Hx Macular degeneration Neg Hx Strabismus Neg Hx Relation Name Status Comments Aunt Brother Father Maternal Grandfather Maternal Grandmother Mother Other Paternal Grandfather Paternal Grandmother Sister Uncle Social History Tobacco Use Types Packs/Day Years [...] Orientation Straight 05/12/2024 3: 01 PM EST Obstetrics History Para Term AB IAB SAB Ectopic Multiple Livin g Live Births 1 Last Filed Vital Signs Vital Sign Reading [...] Mass Index 26.63 05/22/2025 8:36 AM EST Plan of Treatment Upcoming Encounters Date Type Department Care Team (Late st Contact Info) Description 07/25/2025 10:00 AM EST Office Visit [facility]st[facility]s [facility] [address] [place] [address] Mariluz Acevedo, [address] [phone] Health Maintenance Due Date Last Done Comments Colorectal Cancer Screening: Colonoscopy 1973 Hepatitis B Vaccines (1 of 3 - 19+ 3-dose series) 02/02/1992 Pneumococcal Vaccine: 50+ Years (1 of 2 - PCV) 02/02/1992 Zoster Vaccines (1 of 2) 02/02/1992 Cervical Cancer Screening: Pap Smear 10/30/2016 10/30/2013, 10/30/2013 DTaP,Tdap,and Td Vaccines (2 - Td or Tdap) 12/31/2019 12/30/2009 COVID-19 Vaccine (2 - Pfizer risk series) 09/09/2020 08/19/2020 Social Influencers of Health Screening 06/18/2022 RSV Immunization Adult Patients (1 - Risk 50-74 years 1-dose series) 2023 Depression Screening 07/10/2024 Influenza Vaccine (#1) 2025 Hypertension/CHF/CAD Annual BMP Blood Test 05/21/2026 05/21/2025, 01/01/2025, 02/23/2024, Additional history exists Breast Cancer Screening 04/11/2027 04/11/20, 02/05/2018, 01/30/2017 Cholesterol Screening (Lipid Panel) 05/21/2030 05/21/2025, 01/01/2025, 03/30/2023 HIV Screening Completed 10/30/2013 Hepatitis C Screening Completed 10/30/2013 HIB Vaccines Aged Out No longer eligi ble based on patient's age to complete this topic HPV Vaccines Aged Out No longer eligi ble based on patient's age to complete this topic Hepatitis A Vaccines Aged Out No long er eligible based on patient's age to complete this topic IPV Vaccines Aged Out No longer eligi ble based on patient's age to complete this topic MMR Vaccines Aged Out No longer eligi ble based on patient's age to complete this topic Meningococcal ACWY Vaccine Aged Out N o longer eligible based on patient's age to complete this topic Meningococcal B Vaccine Aged Out No l onger eligible based on patient's age to complete this topic RSV Immunization Patients Under 20 months Aged Out No longer eligible based on patient's age to complete this topic Varicella Vaccines Aged Out No longer eligible based on patient's age to complete this topic Procedures Procedure Name Priority Date/Time Associated Diagnosis Comments GALICIA URINE CULTURE TUBE STAT 05/22/2025 12:00 PM EST URINALYSIS WITH REFLEX MICROSCOPIC AND CULTURE STAT 05/22/2025 12:00 PM EST URINALYSIS WITH REFLEX MICROSCOPIC AND CULTURE STAT 05/22/2025 12:[address] ABDOMEN PELVIS WO CONTRAST STAT 05/22/2025 11:12 AM EST CBC WITH AUTO DIFFERENTIAL STAT 05/22/2025 10:14 AM EST CBC AND DIFFERENTIAL STAT 05/22/2025 10:14 AM EST COMPREHENSIVE METABOLIC PANEL Routine 05/21/2025 10:26 AM EST Adult general medical exam Essential hypertension LIPID PANEL WITH REFLEX TO DIRECT LDL Routine 05/21/2025 10:26 AM EST Adult general medical exam THYROID STIMULATING HORMONE WITH REFLEX TO FREE T4 AND FREE T3 Routine 05/21/2025 10:26 AM EST Numbness and tingling Menopausal hot flushes MG MAMMO DIGITAL SCREENING W JIMMY BILAT Routine 04/11/2025 11:15 AM EDT Encounter for screening mammogram for malignant neoplasm of breast HEPATITIS C SCREENING Routine 10/30/2013 HIV SCREENING Routine 10/30/2013 HPV Routine 10/30/2013 from Last 3 Months or Most Recently Relevant to Health Maintenance Results * Urinalysis with reflex microscopic and culture (05/22/2025 12:00 PM EST) Specific [place] Urine 1.009 1.003 - 1.030 LAB URINALYSIS - AUTOMATED METHOD 05/22/2025 12:19 PM [facility] pH, Urine 6.0 5.0 - 8.0 pH LAB URINALYSIS - AUTOMATED METHOD 05/22/2025 12:19 PM [facility] Leukocytes, Urine Negative Negative LAB URINALYSIS - AUTOMATED METHOD 05/22/2025 12:19 PM [facility] Nitrite, Urine Negative Negative LAB URINALYSIS - AUTOMATED METHOD 05/22/2025 12:19 PM [facility] Protein, Urine Negative <=Trace mg/dL LAB URINALYSIS - AUTOMATED METHOD 05/22/2025 12:19 PM [facility] Glucose, Urine Negative Negative mg/dL LAB URINALYSIS - AUTOMATED METHOD 05/22/2025 12:19 PM [facility] Ketones, Urine Negative Negative mg/dL LAB URINALYSIS - AUTOMATED METHOD 05/22/2025 12:19 PM [facility] Urobilinogen, Urine 0.2 0.2 - 1.0 mg/dL LAB URINALYSIS - AUTOMATED METHOD 05/22/2025 12:19 PM EST [facility] Bilirubin, Urine Negative Negative LAB URINALYSIS - AUTOMATED METHOD 05/22/2025 12:19 PM EST [facility] Blood, Urine Negative Negative LAB URINALYSIS - AUTOMATED METHOD 05/22/2025 12:19 PM EST [facility] Urine Urine specimen obtained by clean catch procedure / Unknown Non-blood Collection / Unknown 05/22/2025 12:00 PM EST 05/22/2025 12:10 PM EST us Richard CARPENTER LAB URINE ORDERABLES Final Result Performing Organization Address [facility]/ZIP Co de Phone Number [facility] [address] [place] [address], [place] [phone] * [place] urine culture tube (05/22/2025 12:00 PM EST) Extra Tube Hold for add-ons. 05/22/2025 2:01 PM EST [facility] Comment:Auto resulted. Urine Urine specimen obtained by clean catch procedure / Unknown Non-blood Collection / Unknown 05/22/2025 12:00 PM EST 05/22/2025 12:10 PM EST us Richard CARPENTER LAB URINE ORDERABLES Final Result [facility] [address] [place] [address], [place] [phone] * CT Abdomen Pelvis wo Contrast (05/22/2025 [...] Signed Date: 05/22/2025 11:38 ET Workstation ID: [id number] Transcribed By: Self Edit Transcribed Date: 05/22/2025 [...] Signed Date: 05/22/2025 11:38 ET Workstation ID: [id number] Transcribed By: Self Edit Transcribed Date: 05/22/2025 11:32 ET Richard CARPENTER IMG CT PROCEDURES Final Res ult * (ABNORMAL) CBC auto differential (05/22/2025 10:14 AM EST) WBC 6.1 4.8 - 10.8 K/mcL LAB HEMETOLOGY METHOD 05/22/2025 10:56 AM [facility] RBC 3.90 3.80 - 4.80 M/[facility] LAB HEMETOLOGY METHOD 05/22/2025 10:56 AM [facility] Hemoglobin 11.6 11.5 - 16.0 g/dL LAB HEMETOLOGY METHOD 05/22/2025 10:56 AM [facility] Hematocrit 34.4(L) 35.0 - 47.0 % LAB HEMETOLOGY METHOD 05/22/2025 10:56 AM [facility] MCV 87.8 79.0 - 98.0 FL LAB HEMETOLOGY METHOD 05/22/2025 10:56 AM [facility] MCH 29.6 27.0 - 32.0 pcg LAB HEMETOLOGY METHOD 05/22/2025 10:56 AM [facility] MCHC 33.7 32.0 - 37.0 g/dL LAB HEMETOLOGY METHOD 05/22/2025 10:56 AM [facility] RDW 12.3 11.0 - 15.0 % LAB HEMETOLOGY METHOD 05/22/2025 10:56 AM [facility] Platelets 204 130 - 400 K/mcL LAB HEMETOLOGY METHOD 05/22/2025 10:56 AM [facility] MPV 11.2(H) 7.0 - 11.0 FL LAB HEMETOLOGY METHOD 05/22/2025 10:56 AM [facility] NRBC 0.0 <1.0 % LAB HEMETOLOGY METHOD 05/22/2025 10:56 AM [facility] NRBC Absolute 0.00 <0.10 K/mcL LAB HEMETOLOGY METHOD 05/22/2025 10:56 AM [facility] Neutrophils Relative 49.9 % LAB HEMETOLOGY METHOD 05/22/2025 10:56 AM [facility] Lymphocytes Relative 39.9 % LAB HEMETOLOGY METHOD 05/22/2025 10:56 AM [facility] Monocytes Relative 8.7 % LAB HEMETOLOGY METHOD 05/22/2025 10:56 AM [facility] Eosinophils Relative 0.7 % LAB HEMETOLOGY METHOD 05/22/2025 10:56 AM [facility] Basophils Relative 0.5 % LAB HEMETOLOGY METHOD 05/22/2025 10:56 AM [facility] Immature Granulocytes Relative 0.3 % LAB HEMETOLOGY METHOD 05/22/2025 10:56 AM [facility] Neutrophils Absolute 3.02 1.50 - 7.00 K/mcL LAB HEMETOLOGY METHOD 05/22/2025 10:56 AM EST [facility] Lymphocytes Absolute 2.42 1.00 - 5.00 K/[facility] LAB HEMETOLOGY METHOD 05/22/2025 10:56 AM EST [facility] Monocytes Absolute 0.53 0.20 - 1.00 K/[facility] LAB HEMETOLOGY METHOD 05/22/2025 10:56 AM EST [facility] Eosinophils Absolute 0.04 0.00 - 0.50 K/[facility] LAB HEMETOLOGY METHOD 05/22/2025 10:56 AM EST [facility] Basophils Absolute 0.03 0.00 - 0.20 K/[facility] LAB HEMETOLOGY METHOD 05/22/2025 10:56 AM [facility] Immature Granulocytes Absolute 0.02 0.00 - 0.03 K/[facility] LAB HEMETOLOGY METHOD 05/22/2025 10:56 AM [facility] Blood Venous blood specimen / Unknown Venipuncture / Unknown 05/22/2025 10:14 AM EST 05/22/2025 10:52 AM EST Casey Min MD LAB BLOOD ORDERABLES Final Result [facility] [address] [place] [address], * Thyroid stimulating hormone with reflex to free t4 and free t3 (05/21/2025 10:26 AM EST) TSH 0.99 0.40 - 4.00 mcIU/mL LAB CHEMISTRY METHOD 05/21/2025 2:10 PM EST [facility] Blood Venous blood specimen / Unknown Venipuncture / Unknown 05/21/2025 10:26 AM EST 05/21/2025 10:26 AM EST us Declan Jarihi KNUCKLE BENDER LAB BLOOD ORDERABLES Final Res ult [facility] [address] [place] [address], [place] [phone] * (ABNORMAL) Lipid panel with reflex to direct LDL (05/21/2025 10:26 AM EST) [facility] Cholesterol 283(H) 0 - 200 mg/dL LAB CHEMISTRY METHOD 05/21/2025 1:27 PM EST [facility] Triglycerides 127 0 - 150 mg/dL LAB CHEMISTRY METHOD 05/21/2025 1:27 PM EST [facility] HDL 99 >=40 mg/dL LAB CHEMISTRY METHOD 05/21/2025 1:27 PM [facility] LDL Calculated 159(H) 0 - 100 mg/dL LAB CHEMISTRY METHOD 05/21/2025 1:27 PM [facility] Comment:Estimated LDL Calcul ated using equation: Total cholesterol - HDL cholesterol - (Triglycerides/5) VLDL Cholesterol Timothy 25.4 mg/dL LAB CHEMISTRY METHOD 05/21/2025 1:27 PM [facility] Non HDL Chol. (LDL+VLDL) 184(H) <145 mg/dL LAB CHEMISTRY METHOD 05/21/2025 1:27 PM [facility] Chol/HDL Ratio 2.9 0.0 - 4.4 LAB CHEMISTRY METHOD 05/21/2025 1:27 PM [facility] Blood Venous blood specimen / Unknown Venipuncture / Unknown 05/21/2025 10:26 AM EST 05/21/2025 10:26 AM EST us Declan San KNUCKLE BENDER LAB BLOOD ORDERABLES Final Res ult [facility] [address] [place] [address], [place] [phone] * Comprehensive metabolic panel (05/21/2025 10:26 AM EST) Sodium 138 133 - 145 mmol/L LAB CHEMISTRY METHOD 05/21/2025 1:23 PM [facility] Potassium 4.2 3.5 - 5.5 mmol/L LAB CHEMISTRY METHOD 05/21/2025 1:23 PM [facility] Chloride 104 96 - 110 mmol/L LAB CHEMISTRY METHOD 05/21/2025 1:23 PM [facility] CO2 26 21 - 32 mmol/L LAB CHEMISTRY METHOD 05/21/2025 1:23 PM [facility] Anion Gap 8 3 - 11 LAB CHEMISTRY METHOD 05/21/2025 1:23 PM [facility] Glucose 90 70 - 100 mg/dL LAB CHEMISTRY METHOD 05/21/2025 1:23 PM [facility] BUN 21 5 - 25 mg/dL LAB CHEMISTRY METHOD 05/21/2025 1:23 PM [facility] Creatinine 0.88 0.50 - 1.10 mg/dL LAB CHEMISTRY METHOD 05/21/2025 1:23 PM [facility] eGFR 79 >=60 mL/min/1. 73m2 LAB CHEMISTRY METHOD 05/21/2025 1:23 PM [facility] Comment:Calculation based on the Chronic Kidney Disease Epidemiology Collaboration (CKD-EPI) equation refit without adjustment for race. BUN/Creatinine Ratio 23.9 LAB CHEMISTRY METHOD 05/21/2025 1:23 PM [facility] Calcium 9.7 8.5 - 10.5 mg/dL LAB CHEMISTRY METHOD 05/21/2025 1:23 PM [facility] AST (SGOT) 25 10 - 42 unit/L LAB CHEMISTRY METHOD 05/21/2025 1:23 PM [facility] ALT (SGPT) 29 10 - 60 unit/L LAB CHEMISTRY METHOD 05/21/2025 1:23 PM [facility] Alkaline Phosphatase 56 42 - 121 unit/L LAB CHEMISTRY METHOD 05/21/2025 1:23 PM EST [facility] Total Protein 7.7 6.0 - 8.0 g/dL LAB CHEMISTRY METHOD 05/21/2025 1:23 PM EST [facility] Albumin 4.4 3.2 - 5.0 g/dL LAB CHEMISTRY METHOD 05/21/2025 1:23 PM EST [facility] Total Bilirubin 0.4 0.0 - 1.4 mg/dL LAB CHEMISTRY METHOD 05/21/2025 1:23 PM EST [facility] Blood Venous blood specimen / Unknown Venipuncture / Unknown 05/21/2025 10:26 AM EST 05/21/2025 10:26 AM EST us Declan San NP LAB BLOOD ORDERABLES Final Res ult [facility] [address] [place] [address], * MG Mammo Digital Screening w Jimmy bilat (04/11/2025 11:15 AM EDT) Anatomical Region Laterality Modality Breast Bilateral Mammography 04/14/2025 10:4 8 AM EDT Impressions 04/14/2025 10:51 AM EDT No mammographic evidence of malignancy. A negative mammogram in the presence of a clinically suspicious palpable abnormality does not preclude the possibility of malignancy or alter the indications for biopsy. PQRI CPT II 3342F Code 92839, 87977 PQRI 225 CPT II 7025F TISSUE DENSITY: The breasts are heterogeneously dense, which may obscure small masses. (BI-RADS category C) IMPRESSION: Benign. BI-RADS CATEGORY: 2 - BENIGN RECOMMENDATION: Screening bilateral mammogram is recommended in 1 year. Mammo Location: [facility], [address] [place] [id number] -------- FINAL REPORT -------- Dictated By: Abdulaziz Quesada Dictated Date: 04/14/2025 10:48 ET Assigned Physician: Abdulaziz Quesada Reviewed and Electronically Signed By: Abdulaziz Quesada Signed Date: 04/14/2025 10:51 ET Workstation ID: [id number] Transcribed By: Self Edit Transcribed Date: 04/14/2025 10:48 ET Narrative 04/14/2025 10:51 AM EDT CLINICAL: The patient is a 50 years Female presenting for routine screening mammography. COMPARISON: Outside studies performed 02/05/2018 and 01/30/2017. TECHNIQUE: Full-field digital mammography of the breasts bilaterally consisting of tomosynthesis in MLO and CC projection is performed in the Sendorie 2000-D unit. Computer aided detection utilizing the iCAD system was utilized. FINDINGS: The breasts are again seen to be composed of a combination of fatty and moderately dense fibroglandular elements. A few scattered benign calcifications are again noted bilaterally. There is no suspicious cluster of microcalcifications, mass, or area of architectural distortion. There is no skin thickening or nipple retraction. Procedure Note Abdulaziz Quesada MD - 04/14/2025 CLINICAL: The patient is a 50 years Female presenting for routinescreening mammography. COMPARISON: Outside studies performed 02/05/2018 and 01/30/2017. TECHNIQUE: Full-field digital mammography of the breasts bilaterallyconsisting of tomosynthesis in MLO and CC projection is performed in theCellcryptographe 2000-D unit. Computer aided detection utilizing the iCADsystem was utilized. FINDINGS: The breasts are again seen to be composed of a combination offatty and moderately dense fibroglandular elements. A few scatteredbenign calcifications are again noted bilaterally. There is no suspiciouscluster of microcalcifications, mass, or area of architectural distortion.There is no skin thickening or nipple retraction. IMPRESSION: No mammographic evidence of malignancy. A negative mammogram in the presence of a clinically suspicious palpableabnormality does not preclude the possibility of malignancy or alter theindications for biopsy. PQRI CPT II 3342F Code 02450, 24616 PQRI 225 CPT II 7025F TISSUE DENSITY: The breasts are heterogeneously dense, which may obscuresmall masses. (BI-RADS category C) IMPRESSION: Benign. BI-RADS CATEGORY: 2 - BENIGN RECOMMENDATION: Screening bilateral mammogram is recommended in 1 year. Mammo Location: [facility], [address] [place] [id number] -------- FINAL REPORT -------- Dictated By: Abdulaziz Quesada Dictated Date: 04/14/2025 10:48 ET Assigned Physician: Abdulaziz Quesada Reviewed and Electronically Signed By: Abdulaziz Quesada Signed Date: 04/14/2025 10:51 ET Workstation ID: [id number] Transcribed By: Self Edit Transcribed Date: 04/14/2025 10:48 ET Declan San KNUCKLE BENDER IMG BI PROCEDURES Final Result * Cervical Cancer Screening: HPV (10/30/2013) Pathologist [facility] Cervical Cancer Screening: HPV abstracted, negative Historical Provider HEALTH MAINTENANCE Final Result * HIV Screening (10/30/2013) [facility] HIV Screening abstracted Historical Provider HEALTH MAINTENANCE Final Result * Hepatitis C Screening (10/30/2013) Pathologist [facility] Hepatitis C Screening abstracted Historical Provider HEALTH MAINTENANCE Final Result from Last 3 Months or Most Recently Relevant to Health Maintenance Insurance [facility] [employer] [place] [id number] Care Teams Electrical Instrumentation Technician Relationship Specialty Start Date End Date Brittani Fontenot MD [address] [place] [phone] PCP - General Internal Medicine 05/21/25
--- OUTSIDE RECORDS SUMMARY | 2025-05-23 21:41 | XMS_ITS | Encounter Summary ---
Author Organization [facility] Address [address] [place] [address] Care Team Providers Care Search Director Name Role Phone Brittani Fontenot MD Primary Care Provider [phone] Reason for Referral * Consultation (Routine) - Authorized Specialty Diagnoses / Procedures Referred By Contaltagracia t Referred To Contact Cardiology Diagnoses Hyperlipidemia, unspecified hyperlipidemia type Declan Talley NP [address] [place] [phone] Phone: tel: fax: [facility] Cardiology [facility] [address] [place] [phone] Phone: tel: fax: Referral ID Status Reason Start Date Expiration Date Visits Requested Visits Authorized [id number] Authorized Specialty Services Required 5 05/21/2026 1 1 Reason for Visit * Reason Onset Date Comments Medication Problem 05/21/2025 Encounter Details Date Type Department Care Team (Late st Contact Info) Description 05/21/2025 [facility] [address] [place] [address] Brittani Fontenot MD [address] [place] [address] Social History Tobacco Use Types Packs/Day Years [...] 05/22/2025 8:32 AM Cori Massey RN * [place] Suicide Severity Rating Scale (Screener/Recent Self-Report) Question Answer Date of Assessment Author 1. Wish to be (Past 1 Month) No 025 8:32 AM Cori Massey RN 2. Non-Specific Active Suici leslie Thoughts (Past 1 Month) No 05/22/2025 8:32 AM Wander Massey RN 6. Suicidal Behavior (Lifetime) No 8:32 AM Cori Massey RN documented as of this encounter Ordered Prescriptions Prescription Sig Dispense Quantity Refills Last Filled Start Date End Date hydrOXYzine HCL (ATARAX) 25 mg tabletIndications: Anxiety Take 1 tablet (25 mg total) by mouth at bedtime as needed for anxiety. 90 each 05/22/2025 documented in this encounter Progress Notes * Declan Talley NP - 05/22/2025 4:47 PM EST Noted * Radha Finnegan MA - 05/22/2025 4:41 PM EST FYI: Pt notified of message per pt she does not want the medication, pt stated her attacks are random and this medication will not help. Pt wanted to let provider know she refused. * Declan Talley NP - 05/22/2025 4:39 PM ESTAddended by: DECLAN TALLEY on: 05/22/2025 04:39 PM Modules accepted: Orders * Declan Talley NP - 05/22/2025 4:37 PM EST I have sent a prescription for hydroxyzine as needed for anxiety attack, which is not a controlled substance. Please inform the patient that this medication may cause drowsiness. She should avoid taking it before driving or engaging in activities that require alertness and concentration. * Radha Finnegan MA - 05/22/2025 9:43 AM EST Spoke with pt, pt stated Debbie to far out to see her PCP would like a medication as an PRN * Declan Talley NP - 05/21/2025 5:04 PM EST My today note: Anxiety and panic attack, reports continuous and daily anxiety, reviewed several options which she is not interested, she would like to have a prescription for lorazepam, advised patient to see a psychiatrist for appropriate management, informed her that starting controlled substance medication needs PCP approval and related documentation * Radha Finnegan MA - 05/21/2025 4:51 PM EST Pt notified of message pt would like to know what about her anxiety and panic attacks * Declan Talley NP - 05/21/2025 4:39 PM EST Referral placed to cardiology as discussed on today's appointment for management of hyperlipidemia * Luda Jarquin MA - 05/21/2025 3:02 PM EST Pt is requesting alternative for ezetimibe (ZETIA) 10 mg as she read the side effects and they include the same side effects the previous medication gave her. Please advise. * Emili Lorenz - 05/21/2025 2:52 PM EST Medication Problem: What is the name of the medication patient is having a problem with?: ezetimibe (ZETIA) 10 mg tablet What is the problem?: pt states she spoke to provider today to let her know the other meds she was taking previously gave her muscle cramps.. says she was reading the side effect for this new med prescribed today and says that it has all the same side effects. Requesting alternative. Who is calling about the problem? : The patient Is this a NEW medication?: yes How long has the patient been taking this medication? Who prescribed this medication for the patient? Declan Talley NP Who is patients PCP?: Brittani Fontenot MD Payor: [facility] PUBLIC PLANS / Plan: [facility] DIRECT / Product Type: *No Product type* / documented in this encounter Plan of Treatment Upcoming Encounters Date Type Department Care Team (Late st Contact Info) Description 07/25/2025 10:00 AM EST Office Visit Obstetrics [facility]necology - [facility] [address] [place] [phone] Mariluz Acevedo CNM [facility] [place] [address] Scheduled Referrals Name Type Priority Associated Diagnoses Orde r Schedule Ambulatory referral to Cardiology Outpatient Referral Routine Hyperlipidemia, unspecified hyperlipidemia type 1 Occurrences starting 05/21/2025 until 05/21/2026 documented as of this encounter Visit Diagnoses Diagnosis Hyperlipidemia, unspecified hyperlipidemia type- Primary Anxiety Anxiety state, unspecified documented in this encounter Care Teams Search Director Relationship Specialty Start Date End Date Brittani Fontenot MD [address] [facility] [phone] PCP - General Internal Medicine 05/21/25 documented as of this encounter
--- OUTSIDE RECORDS SUMMARY | 2025-05-23 21:42 | XMS_ITS | Encounter Summary ---
Author Organization [facility] Address [address] [place] [address] Care Team Providers Care Deburrer Strip Name Role Phone Brittani Fontenot MD Primary Care Provider [phone] Encounter Details Date Type Department Care Team (Late st Contact Info) Description 05/21/2025 Results Follow-Up Internal Medicine - [address] [phone] Declan San NP [address] [place] [address] Social History Tobacco Use Types Packs/Day Years [...] 05/22/2025 8:32 AM Cori Massey RN * [place] Suicide Severity Rating Scale (Screener/Recent Self-Report) Question Answer Date of Assessment Author 1. Wish to be (Past 1 Month) No 025 8:32 AM Cori Massey RN 2. Non-Specific Active Suici leslie Thoughts (Past 1 Month) No 05/22/2025 8:32 AM EST Wander Santos, RN 6. Suicidal Behavior (Lifetime) No 8:32 AM EST Cori Santos, RN documented as of this encounter Progress Notes * Snow Reis MA - 05/22/2025 9:40 AM EST Spoke with patient and let her know of message. She is asking for referral to talkiatry while we wait on Dr. Thayer to arrive, since Dr. Fontenot is booked into December and she cannot wait that long. She did ask that this be referred to patient services as she is aware that N.P.s can write short term prescriptions and does not understand/feel like it was explained why you are not willing to do so. Message sent over. * Declan San NP - 05/22/2025 7:37 AM EST It appears the patient did not fully understand my explanation regarding controlled substance medications, applicable policies, and [place] requirements for documentation and paperwork. Please schedule an appointment with her PCP. If her PCP is unavailable, kindly provide her with a list of other PCPs who have openings, as she may choose to transfer care. Inform the patient that scheduling an appointment with a PCP does not guarantee that a prescriptionwill be issued; prescribing controlled substances is solely at the discretion of the PCP based on their clinical judgment and compliance with state and practice policies. * Danuta Macias RN - 05/22/2025 7:17 AM EST Seen by Declan yesterday See pt's Mychart message documented in this encounter Plan of Treatment Upcoming Encounters Date Type Department Care Team (Late st Contact Info) Description 07/25/2025 10:00 AM EST Office Visit Obst[facility]s [facility] - [facility] [address] [facility] [place] [phone] Mariluz Acevedo, SHON [address] [place] [phone] documented as of this encounter Visit Diagnoses Diagnosis Anxiety with depression- Primary documented in this encounter Discontinued Medications Medication Sig Discontinue Reason Start Date End Da te ezetimibe (ZETIA) 10 mg tabletIndications:Hyperlip idemia, unspecified hyperlipidemia type Take 1 tablet (10 mg total) by mouth 1 (one) time each day. 05/21/2025 05/21/2025 documented as of this encounter Care Teams Deburrer Strip Relationship Specialty Start Date End Date Brittani Fontenot MD [address] [place], [place] PCP - General Internal Medicine 05/21/25 documented as of this encounter
--- OUTSIDE RECORDS SUMMARY | 2025-05-23 21:42 | XMS_ITS ---
Author Name [facility] Organization Unknown Care Team Organization Name Specialty Phone Email Start Date End Da te [facility] DIANA FREITAS Primary Care 12/16/2022 02/26/20 [facility] Sandra Armenta Primary Care 05/17/202202/07
--- OUTSIDE RECORDS SUMMARY | 2025-05-23 21:42 | XMS_ITS | Encounter Summary ---
Author Organization [facility] Address [address] [place] [address] Care Team Providers Care Oxygen System Tester Name Role Phone Brittani Fontenot MD Primary Care Provider [phone] Encounter Details Date Type Department Care Team (Late st Contact Info) Description 04/14/2025 Results Follow-Up Internal Medicine - [facility] [address] [place], [place] [phone] Snow Reis [place] Social History Tobacco Use Types Packs/Day Years [...] PM EST documented as of this encounter Plan of Treatment Upcoming Encounters Date Type Department Care Team (Late st Contact Info) Description 07/25/2025 10:00 AM EST [facility] [address] [place] [phone] Mariluz Acevedo CNM [address] [place] [phone] documented as of this encounter Visit Diagnoses Not on filedocumented in this encounter Care Teams Oxygen System Tester Relationship Specialty Start Date End Date Brittani Fontenot MD [address] [place] [phone] PCP - General Internal Medicine 05/21/25 documented as of this encounter
== END 2025-05-23 14:35 | disposition home or self-care (01) ==
LOC: HO.NEURO 14:34
PROVIDERS: Visit Provider Physician Assistant
DX: G56.03 Carpal tunnel syndrome, bilateral upper limbs (principal); M54.2 Cervicalgia; R20.0 Anesthesia of skin
CPT/HCPCS: 95886; 95911

== ENCOUNTER → 2025-05-23 14:40 | Outpatient (BNV) | payer OTHER, SELFPAY | PROVIDERS: Visit Provider Physical Medicine & Rehabilitation | DX: G56.13 Other lesions of median nerve, bilateral upper limbs (principal) | CPT/HCPCS: 95886; 95911 ==